=== PATIENT | male | born 1980 | race Caucasian/White ===

== ENCOUNTER 2019-10-22 18:56 | Observation (INO) | payer SELFPAY ==
[2019-10-22] MEDS ORDERED: Morphine 4 MG/ML VIAL ONE (19:11)
[2019-10-22] MEDS ORDERED: Ondansetron PF 4 MG/2 ML Vial ONE (19:11)
[2019-10-22 19:31] LABS: #Lymphocytes 0.8 thou/uL (1.20-3.40); #Monocytes 0.6 thou/uL (0.11-0.59); #Neutrophils 15.6 thou/uL (1.40-6.50); %Basophils 0.1 % (0.0-1.0); %Eosinophils 0.1 % (0.0-10.0); %Lymphocytes 4.9 % (21.0-51.0); %Monocytes 3.5 % (0.0-10.0); %Neutrophils 91.3 % (42.0-75.0); Hemoglobin 16.5 g/dL (14.0-18.0); Mean Corpuscular HGB CONC 33.2 g/dL (32.0-36.0); Mean Corpuscular Hemoglobin 29.6 pg (27.0-31.0); Mean Corpuscular Volume 89.1 fL (78.0-98.0); Platelet Count 299 thou/uL (130-400); Red Blood Cell (RBC) Count 5.59 mill/uL (4.70-6.10); White Blood Cell (WBC) Count 17.1 thou/uL (4.8-10.8)
[2019-10-22 19:52] LABS: ALT (SGPT) 22 U/L (8-55); AST (SGOT) 21 U/L (5-34); Albumin 5.1 g/dL (3.5-5.0); Alkaline Phosphatase 89 U/L (40-110); Anion Gap 27 mmol/L (10-20); BUN (Urea Nitrogen) 16 mg/dL (8.9-20.6); Bilirubin, Total 0.6 mg/dL (0.2-1.2); Calc. Creatinine Clearance 0 mL/min (70-130); Calcium 10.1 mg/dL (7.8-10.44); Carbon Dioxide 14 mmol/L (22-29); Chloride 104 mmol/L (98-107); Estimated GFR-MDRD 85; Globulin 3.2 g/dL (2.4-3.5); Glucose 105 mg/dL (70-105); Potassium 4.7 mmol/L (3.5-5.1); Protein, Total 8.3 g/dL (6.0-8.3); Sodium 140 mmol/L (136-145)
[2019-10-22] MEDS ORDERED: cefTRIAXone\\ROCEPHIN 1 GM VIAL ONE (20:14)
--- NOTE | 2019-10-22 20:18 | ULT ---
SCROTAL ULTRASOUND: 10/22/19 COMPARISON: None. HISTORY: Right testicular pain for one day. TECHNIQUE: Multiplanar gates scale sonographic imaging of the contents of the scrotal sac obtained. The testicles are assessed with color flow and spectral analysis. FINDINGS: Left testicle measures 4.6 x 2.1 x 3.0 cm and right testicle measures 5.0 x 2.6 x 3.3 cm. Testicles d emonstrate normal blood flow without evidence for mass on either side. Epididymal head appears unrema rkable bilaterally. Trace bilateral hydrocele noted. IMPRESSION: No acute findings. POS: [facility]
[2019-10-22 20:29] LABS: Bacteria/HPF None Seen HPF (None Seen); Bilirubin Negative (Negative); Blood, Urine Negative (Negative); Clarity Clear (Clear); Glucose, Urine (Dipstick) Normal (Negative); Leukocyte Negative Leu/uL (Negative); Nitrite Negative (Negative); Protein, Urine (Dipstick) 30 mg/dL (Neg-Trace); RBC/HPF 0-3 HPF (0-3); Squamous Epithelial None Seen HPF (0-3); Urobilinogen Normal mg/dL (Less than 2); WBC/HPF 0-3 HPF (0-3)
[2019-10-22 20:38] LABS: Lactic Acid 3.8 mmol/L (0.5-2.2)
--- NOTE | 2019-10-22 20:57 | CT ---
CT ABDOMEN AND PELVIS 10/22/19 COMPARISON: None. HISTORY: Right sided testicular pain/right flank pain. TECHNIQUE: Axial CT imaging at 5 mm intervals from lung bases through pubic symphysis without contrast. Coronal and sagittal reformatted imaging obtained. FINDINGS: Lack of contrast limits assessment of the viscera, bowel, vascular structures and for lymphadenopathy . The visualized lung bases are unremarkable. No free intraperitoneal air. The liver, gallbladder, spleen, pancreas, adrenal glands, and kidneys demonstrate no acute findings. No nephrolithiasis or hydronephrosis is noted on either side. There is a punctate calcification along the course of the distal aspect of the right ureter measuring in the 2 mm range on axial image 63. T his could potentially represent a tiny stone within the distal right ureter in the proper clinical se tting. This does not result in hydronephrosis or hydroureter; however. Limited assessment of the bowel without oral contrast media demonstrates no acute findings. Review of the osseous structures demonstrates no acute findings. IMPRESSION: No hydronephrosis or hydroureter. Punctate calcification along the course of the distal right ureter may represent a tiny stone within the distal right ureter without associated hydronephrosis or hydrou reter. Clinical correlation is required. This is felt to most likely be on the basis of a phlebolith. POS: [facility]
[2019-10-22] MEDS ORDERED: Lorazepam 2 MG/ML VIAL ONE (20:58)
--- NOTE | 2019-10-22 21:11 | PDOC.FPRHP ---
- History of Present Illness Chief Complaint: R testicular pain History of Present Illness: 39yoM w/ no known past medical history who presents for sudden onset of R testicular pain this afternoon that radiates to his right flank. He states he was just laying down when it started. He describes the pain as sharp, stabbing, 5/10, with associated nausea. The medication they gave in the ED makes it better. The pain comes up about every 10 min. He denies recent trauma, sexual activity, history of STDs, history of kidney stones. ED Course: Rocephin, Morphine, 2L NS, Zofran - Allergies/Adverse Reactions Allergies Allergy/AdvReac Type Severity Reaction Status Date / Time No Known Allergies Allergy Verified 10/22/19 22:32 - Home Medications Medication Instructions Recorded Confirmed Type Acetaminophen [Tylenol] 650 mg PO Q4HR PRN 10/22/19 10/22/19 History - History PMHx: Denies PSHx: Eye surgery FHx: Dad: Heart problems Mom: Heart problems Social: Remote history of illegal drug use. Alcohol use 1x / week. 8-9 drinks at a time. - Review of Systems General: denies: fever/chills, weight/appetite/sleep changes, night sweats, fatigue Eyes: denies: eye pain, vision changes ENT: denies: nasal congestion, rhinorrhea Respiratory: denies: cough, congestion, shortness of breath Cardiovascular: denies: chest pain, palpitation, edema, paroxysmal nocturnal dyspnea, orthopnea Gastrointestinal: reports: nausea. denies: vomiting, diarrhea, constipation, abdominal pain Genitourinary: reports: other (Pain). denies: incontinence, dysuria, polyuria Skin: denies: rashes Musculoskeletal: denies: pain, tenderness Neurological: denies: numbness, syncope, seizure, weakness - Vital signs BP: 138/93, Pulse: 136, Resp: 16 (Non-Labored), Pain: 2, O2 sat: 100 on (Room Air). Weight 64kg - Physical Exam Constitutional: NAD, awake, alert and oriented, well developed HEENT: normocephalic and atraumatic, PERRLA, EOMI, grossly normal vision, grossly normal hearing -HEENT: Dry mucus membranes, poor dentition Neck: supple, trachea midline Heart: RRR, normal S1/S2, no murmurs/rubs/gallops Lungs: CTAB, no respiratory distress, good air movement Abdomen: soft, non-tender, bowel sounds present -Abdomen: EXAM: Testes palpated bilaterally without significant discomfort. No nodules noted. Mild erythema in the groin. No palpable lymphadenopathy. Musculoskeletal: normal structure, normal tone Neurological: no focal deficit, CN II-XII intact, normal sensation Skin: no rash/lesions, good turgor Heme/Lymphatic: no unusual bruising or bleeding, no purpura, no petechia FMR H&P: Results - Labs Result Diagrams: 10/22/19 19:19 10/23/19 00:27 Lab results: WBC 17.1 thou/uL (4.8-10.8) H 10/22/19 19:19 Hgb 16.5 g/dL (14.0-18.0) 10/22/19 19:19 Hct 49.8 % (42.0-52.0) 10/22/19 19:19 MCV 89.1 fL (78.0-98.0) 10/22/19 19:19 Plt Count 299 thou/uL (130-400) 10/22/19 19:19 Neutrophils % 91.3 % (42.0-75.0) H 10/22/19 19:19 Sodium 140 mmol/L (136-145) 10/22/19 19:19 Potassium 4.7 mmol/L (3.5-5.1) 10/22/19 19:19 Chloride 104 mmol/L (98-107) 10/22/19 19:19 Carbon Dioxide 14 mmol/L (22-29) L 10/22/19 19:19 BUN 16 mg/dL (8.9-20.6) 10/22/19 19:19 Creatinine 0.97 mg/dL (0.7-1.3) 10/22/19 19:19 Glucose 105 mg/dL (70-105) 10/22/19 19:19 Lactic Acid 3.8 mmol/L (0.5-2.2) H 10/22/19 20:07 Calcium 10.1 mg/dL (7.8-10.44) 10/22/19 19:19 Total Bilirubin 0.6 mg/dL (0.2-1.2) 10/22/19 19:19 AST 21 U/L (5-34) 10/22/19 19:19 ALT 22 U/L (8-55) 10/22/19 19:19 Alkaline Phosphatase 89 U/L (40-110) 10/22/19 19:19 Serum Total Protein 8.3 g/dL (6.0-8.3) 10/22/19 19:19 Albumin 5.1 g/dL (3.5-5.0) H 10/22/19 19:19 Urine Ketones 40 mg/dL (Negative) A 10/22/19 20:07 Urine Blood Negative (Negative) 10/22/19 20:07 Urine Nitrite Negative (Negative) 10/22/19 20:07 Ur Leukocyte Esterase Negative Cece/uL (Negative) 10/22/19 20:07 Urine RBC 0-3 HPF (0-3) 10/22/19 20:07 Urine WBC 0-3 HPF (0-3) 10/22/19 20:07 Ur Squamous Epith Cells None Seen HPF (0-3) 10/22/19 20:07 Urine Bacteria None Seen HPF (None Seen) 10/22/19 20:07 - EKG Interpretation EKG: Sinus tach - Radiology Interpretation CT scan - abdomen Status: report reviewed by me (Possible tiny ureteral stone.) Chest x-ray Status: report reviewed by me (Mild increased linear density in the perihilar regions and lung bases. NAF) Other Status: report reviewed by me (Testicular US: No acute process) FMR H&P: A/P - Problem List (1) Testicular pain Current Visit: Yes Status: Acute Code(s): N50.819 - TESTICULAR PAIN, UNSPECIFIED - Plan Testicular pain - US showed no evidence of torsion - CT abdomen showed possible, small ureteral stone - No hematuria or urinary symptoms - Pain improved with Morphine in the ED - Will give Tylenol and Motrin for pain, instructed to call if pain is not well controlled. Dehydration - s/p 2L NS in the ED. - Will bolus 1L LR and then run at 125ml/hr Anion gap metabolic acidosis - Possibly 2/2 alcoholic ketoacidosis vs lactic acidosis - B-hydroxybutyrate level pending - Lactic acid 3.8 - Repeat BMP @ 00:00 Alcohol use - Endorses drinking large amounts on weekends - Plasma alcohol level < 10 - ASE monitoring protocol on, please page with symptoms. Dispo: Stable, admit for observation Code: Full PCP: None FMR H&P: Upper Level - Plan Date/Time: 10/22/192107 PCP: PAIGE HPI: This is a 39 yo M being admitted for evaluation of R testicular/abdominal pain. He stated he was sitting down at 4pm this afternoon and had sudden onset of sharp R testicular pain. He denies trauma, he states he has not been sexually active in 5-7 years. He works in construction. He denies any fevers, chills, sweats, N/V/D. He states he drinks 7-9 drinks one night each weekend. He had been drinking earlier today. He denies every getting blackout drunk. PHYSICAL EXAMINATION: General: NAD, alert and oriented x3 HEENT: PERRLA, EOMI, normal sclera, oropharynx without erythema or exudate, dry oral mucosa, poor dentition, breath smells of alcohol Neck: Supple. Full ROM. Heart/Cardiovascular System: RRR, Cap refill < 3 seconds, no rub, no murmur Lungs/Respiratory System: CTA-B, no resp distress Abdomen/Gastro-Intestinal System: normal bowel sounds, nontender, tinea cruris, no cellulitus, no lymphadenopathy, no tenderness or testicular swelling, no inguinal hernia appreciated Extremities: Warm extremities. No cyanosis or edema Neuro: No gross deficits appreciated. CN 2-12 grossly intact Psychiatry: Awake, Alert and cooperative with exam Skin: no rashes, ulcers Musculoskeletal: Full ROM A/P: # Abdominal pain 2/2 suspected alcoholic ketoacidosis - Suspect patient is volume down, dry oral mucosa - Negative alcohol level, breath smells of alcohol - Fluids, thiamine, folate, ASE scores - B-hydroxy pending, will recheck BMP at midnight - CK, lipase WNL - CT stone protocol and Testilar US negative # SIRS 2/2 dehydration - No fever, WBC 17, tachycardia - Attributed to dehydration - s/p rocephin in ED, cultures taken - consider repeat CXR in AM Fluids: LR Code status:full PPx: scd Dispo: obs Addendum - Attending - Attending Attestation Date/Time: 10/23/19 [id number] I personally evaluated the patient and discussed the management with Dr. Sales on 10/22/19 I agree with the History, Examination, Assessment and Plan documented above with any addition or exceptions noted below- 39yoM w/ no known past medical history who presents for sudden onset of R testicular pain this afternoon that radiates to his right flank. He states he was just laying down when it started. He describes the pain as sharp, stabbing, 5/10, with associated nausea. The medication they gave in the ED makes it better. The pain comes up about every 10 min. He denies recent trauma, sexual activity, history of STDs, history of kidney stones. Denies fever, chills, cough or ill contacts. In ER patient found to be tachycardic, had an elevated WBC count, metabolic acidosis so diagnosis of SIRS given. PMH/PSH/Meds/SH reviewed and agree with resident's documentation. Afebrile P132 BP 165/78 Exam repeated by me and agree with resident's documentation. Labs: WBC=17.1, H/H=16.5/49.8, Vz=277, K=4.7, Fi=262, CO2=14, BUN/Cr=16/0.97, Sajr=892 , Ca=10.1, lactic acid=3.8, AST/ALT=21/22, Procal=0.65. EKG= sinus tachycardia. Testicular USG- notorsion; no masses; normal epididymis. CT stone protocol- no hydronephrosis or hydroureter. A/P: 1) SIRS - Admit to medical; continue IVF suspect pre-renal component. 2) Testicular pain- uncertain etiology- urine GC/ CT collected. 3) Lactic acidosis - continue IVF and repeat in AM. .
--- NOTE | 2019-10-22 21:25 | RAD ---
TWO VIEWS OF THE CHEST: 10/22/19 COMPARISON: None. HISTORY: Vomiting, pain. FINDINGS: There is no pneumothorax or pleural fluid. There is no lobar consolidation or alveolar edema. Mild increased linear density in the perihilar regions and lung bases noted which may be on the basis of mild infiltrate or could simply represent mild vascular prominence. Clinical correlation is requi red. If symptoms persist or worsen, follow-up imaging of the chest advised. IMPRESSION: Nonspecific mild increased linear density in the perihilar regions in both lung bases as detailed abo ve. POS: [facility]
[2019-10-22 21:36] LABS: CK (CPK) 70 U/L (30-200); Lipase 10 U/L (8-78)
[2019-10-22] MEDS ORDERED: Morphine 4 MG/ML VIAL SLOW IVP PRN (21:39)
[2019-10-22] MEDS ORDERED: Ondansetron PF 4 MG/2 ML Vial IVP PRN (21:39)
[2019-10-22] MEDS ORDERED: Acetaminophen 325 MG TAB PO PRN (21:39)
[2019-10-22] MEDS ORDERED: Ibuprofen 800 MG TAB PO PRN (21:44)
[2019-10-22] MEDS ORDERED: Lactated Ringer's 1,000 ML IV SCH (22:00)
[2019-10-22 22:26] VITALS: BMI 25.0
[2019-10-22 23:07] LABS: Amphetamine Detected (NotDetected); Barbiturates Screen Not Detected (NotDetected); Benzodiazepine Screen Not Detected (NotDetected); Cocaine Metabolite Screen Detected (NotDetected); Medtox Control Line Valid? VALID (VALID); Medtox Reader # READER 4; Methadone Not Detected (NotDetected); Methamphetamine Detected (NotDetected); Opiate Screen Detected (NotDetected); Oxycodone Screen Not Detected (NotDetected); Phencyclidine (PCP) Not Detected (NotDetected); THC/Cannabinoid Screen Not Detected (NotDetected); Tricyclic Screen Not Detected (NotDetected)
[2019-10-22] MEDS: Lactated Ringer's 1,000 ML IV SCH (23:42)
[2019-10-23 01:07] LABS: Anion Gap 14 mmol/L (10-20); BUN (Urea Nitrogen) 15 mg/dL (8.9-20.6); Calc. Creatinine Clearance 103 mL/min (70-130); Calcium 8.4 mg/dL (7.8-10.44); Carbon Dioxide 22 mmol/L (22-29); Chloride 105 mmol/L (98-107); Estimated GFR-MDRD Greater than 90; Glucose 150 mg/dL (70-105); Potassium 4.1 mmol/L (3.5-5.1); Sodium 137 mmol/L (136-145)
[2019-10-23 04:42] LABS: #Lymphocytes 1.8 thou/uL (1.20-3.40); #Monocytes 0.8 thou/uL (0.11-0.59); #Neutrophils 5.2 thou/uL (1.40-6.50); %Basophils 0.4 % (0.0-1.0); %Eosinophils 0.6 % (0.0-10.0); %Lymphocytes 22.6 % (21.0-51.0); %Monocytes 10.3 % (0.0-10.0); %Neutrophils 66.1 % (42.0-75.0); Hemoglobin 13.5 g/dL (14.0-18.0); Mean Corpuscular HGB CONC 33.1 g/dL (32.0-36.0); Mean Corpuscular Hemoglobin 29.7 pg (27.0-31.0); Mean Corpuscular Volume 89.8 fL (78.0-98.0); Mean Platelet Volume 7.8 fL (7.4-10.4); Platelet Count 229 thou/uL (130-400); RBC Distribution Width 11.9 % (11.5-14.5); Red Blood Cell (RBC) Count 4.55 mill/uL (4.70-6.10); White Blood Cell (WBC) Count 7.9 thou/uL (4.8-10.8)
[2019-10-23 06:05] LABS: Lactic Acid 0.7 mmol/L (0.5-2.2)
--- NOTE | 2019-10-23 06:26 | PDOC.FM ---
- Subjective Subjective: Pt is doing well. He denies any pain today. He denies drug use. He is ready to go home. - Objective Vital Signs & Weight: Vital Signs (12 hours) Temp Pulse Resp BP BP Pulse Ox 10/23/19 03:50 97.6 F 92 18 113/74 92 L 10/23/19 03:46 113/74 10/22/19 23:48 97.5 F L 118 H 18 106/54 L 96 10/22/19 23:37 106/54 L 10/22/19 22:15 98.6 F 124 H 18 120/71 97 Weight Weight 68.039 kg I&O: 10/21/19 10/22/19 10/23/19 06:59 06:59 06:59 Intake Total 2380 Output Total 575 Balance 1805 Result Diagrams: 10/23/19 04:21 10/23/19 00:27 EKG Reviewed by me: Yes (Tele: Sinus tach resolved, currently NSR) Phys Exam - Physical Examination Constitutional: NAD HEENT: PERRLA dry MMs Neck: no JVD, full ROM Respiratory: no wheezing, clear to auscultation bilateral Cardiovascular: RRR, no significant murmur Gastrointestinal: soft, no distention Musculoskeletal: no edema, pulses present Neurological: non-focal, moves all 4 limbs Psychiatric: normal affect, A&O x 3 Skin: no rash Dx/Plan (1) Nephrolithiasis Status: Acute (2) Lymphocytosis Code(s): D72.820 - LYMPHOCYTOSIS (SYMPTOMATIC) Status: Acute - Plan Plan: # Nephrolithiasis vs Phlebolith in the setting of testicular pain - US showed no evidence of torsion - CT abdomen showed possible, small ureteral stone vs phlebolith - No hematuria or urinary symptoms - No pain today # Dehydration - resolved - s/p 2L NS in the ED. - Will bolus 1L LR and then run at 125ml/hr # Anion gap metabolic acidosis - resolved - Likely 2/2 alcoholic ketoacidosis vs lactic acidosis - lactic acid WNL. - B-hydroxybutyrate level negative # Alcohol use - Endorses drinking large amounts on weekends - last drink was a week ago - Plasma alcohol level < 10 - ASE monitoring protocol on, please page with symptoms. # Drug Use - denies drugs Dispo: Stable, home today Code: Full PCP: None Addendum - Attending - Attending Attestation Date/Time: 10/23/19 3689 I personally evaluated the patient and discussed the management with Dr. Abad. I agree with the History, Examination, Assessment and Plan documented above with any addition or exceptions noted below. Sx resolved. AG metabolic acidosis resolved. D/C home.
[2019-10-23 07:29] VITALS: TEMP 96.8
[2019-10-23] MEDS ORDERED: Thiamine 100 MG TAB PO SCH (09:00)
[2019-10-23] MEDS ORDERED: Folic Acid 1 MG TAB PO SCH (09:00)
[2019-10-23] MEDS: Lactated Ringer's 1,000 ML IV SCH (09:14)
[2019-10-23 11:43] VITALS: BP 132/75
--- NOTE | 2019-10-24 11:52 | DIS ---
DATE OF ADMISSION: 10/22/2019 DATE OF DISCHARGE: 10/23/2019 RESIDENT: Semaj Abad DO ADMITTING ATTENDING: Anuradha Smith MD DISCHARGE ATTENDING: Deniz Valdez MD CONSULTS: None. PROCEDURES PERFORMED: 1. Testicular ultrasound on 10/22/2019, revealed no acute findings. 2. Abdomen pelvis CT on 10/22/2019, revealed no hydronephrosis or hydroureter. Punctate calcification along the course of the distal right ureter may represent a tiny stone within the distal right ureter without associated hydronephrosis or hydroureter. Clinical correlation is required. This is most likely to be on the basis of a phlebolith. 3. Chest x-ray on 10/22/2019, revealed nonspecific mild increased linear density in the perihilar regions in both lung bases as detailed. PRIMARY DIAGNOSES: 1. Phlebolith. 2. Dehydration. 3. Anion gap metabolic acidosis. 4. Alcohol use. 5. Drug use. DISCHARGE MEDICATIONS: Tylenol 650 mg p.o. q.4 hours p.r.n. HISTORY OF PRESENT ILLNESS/HOSPITAL COURSE: The patient is a 39-year-old male with no known past medical history, who presented for right testicular pain onset in the afternoon that radiated to his right flank. He states he was at rest when it did occur and it was a sharp stabbing pain. There was concern for potential testicular torsion, so a right testicular ultrasound was ordered. The ultrasound was within normal limits. CT scan of his abdomen and pelvis also revealed possible phlebolith versus nephrolithiasis, which could have caused this pain. He was subsequently hydrated and on discharge, his pain had alleviated. The patient's labs were fairly unremarkable. DISPOSITION: Stable. DISCHARGE INSTRUCTIONS: 1. Location: [facility]. 2. Diet: Regular. 3. Activity: Ad oscar. 4. Followup: Establish with a primary care provider. Job ID: [id number]
[2019-10-25 21:12] LABS: Chlam.trachomatis by PCR,Urine Not Detected (NotDetected)
== END 2019-10-23 12:15 | disposition home or self-care (01) ==
LOC: ERS 18:56 → 2NO 21:07
PROVIDERS: ADMIT Family Medicine; ATTEND Family Medicine
DX: I87.8 Other specified disorders of veins (principal); E87.2 Acidosis; E86.0 Dehydration; R65.10 Systemic inflammatory response syndrome (SIRS) of non-infectious origin without acute organ dysfunction
CPT/HCPCS: 36415; 71046; 74176; 76870; 80048; 80053; 80306; 80307; 81003; 81015; 82010; 82550; 83605; 83690; 83735; 84145; 84484; 85025; 87040; 87086; 87491; 87591; 93005; 93976; 96361; 96365; 96375; G0378; J0696; J2060; J2270; J2405

== ENCOUNTER 2021-01-02 12:12 | Emergency (ER) | payer SELFPAY ==
[~2021-01-02 12:12] MED LIST: Iopamidol-370 76% 500 ML 1 ML ONE
[2021-01-02 12:35] LABS: #Basophils 0.1 thou/uL (0.0-0.2); #Eosinphils 0.3 thou/uL (0.0-0.7); #Lymphocytes 1.3 thou/uL (1.20-3.40); #Monocytes 0.4 thou/uL (0.11-0.59); #Neutrophils 3.8 thou/uL (1.40-6.50); %Basophils 1.4 % (0.0-1.0); %Eosinophils 4.5 % (0.0-10.0); %Lymphocytes 22.3 % (21.0-51.0); %Monocytes 6.1 % (0.0-10.0); %Neutrophils 65.7 % (42.0-75.0); Hemoglobin 17.4 g/dL (14.0-18.0); Mean Corpuscular Hemoglobin 30.8 pg (27.0-31.0); Mean Corpuscular Volume 87.9 fL (78.0-98.0); Mean Platelet Volume 8.1 fL (7.4-10.4); Platelet Count 249 thou/uL (130-400); Red Blood Cell (RBC) Count 5.64 mill/uL (4.70-6.10); White Blood Cell (WBC) Count 5.8 thou/uL (4.8-10.8)
[2021-01-02 12:53] LABS: Anion Gap 16 mmol/L (10-20); BUN (Urea Nitrogen) 11 mg/dL (8.9-20.6); Calc. Creatinine Clearance 0 mL/min (70-130); Calcium 9.9 mg/dL (7.8-10.44); Carbon Dioxide 20 mmol/L (22-29); Chloride 103 mmol/L (98-107); Glucose 98 mg/dL (70-105); Potassium 4.3 mmol/L (3.5-5.1); Sodium 135 mmol/L (136-145)
[2021-01-02 13:32] LABS: ALT (SGPT) 32 U/L (8-55); AST (SGOT) 23 U/L (5-34); Albumin 4.6 g/dL (3.5-5.0); Alkaline Phosphatase 80 U/L (40-110); Bilirubin, Direct 0.3 mg/dL (0.1-0.3); Bilirubin, Total 0.8 mg/dL (0.2-1.2); Protein, Total 8.3 g/dL (6.0-8.3)
[2021-01-02 13:42] LABS: Bacteria/HPF None Seen HPF (None Seen); Bilirubin Negative (Negative); Blood, Urine Negative (Negative); Clarity Clear (Clear); Glucose, Urine (Dipstick) Normal (Negative); Ketone, Urine 20 mg/dL (Negative); Leukocyte 25 Leu/uL (Negative); Nitrite Negative (Negative); Protein, Urine (Dipstick) 30 mg/dL (Neg-Trace); RBC/HPF None Seen HPF (0-3); Specific Gravity, Urine 1.037 (1.002-1.036); Squamous Epithelial 0-3 HPF (0-3); pH, Urine 6.5 (5.0-9.0)
== END 2021-01-02 14:47 | disposition home or self-care (01) ==
LOC: ERS 12:12
DX: N28.89 Other specified disorders of kidney and ureter (principal); R91.1 Solitary pulmonary nodule; F17.220 Nicotine dependence, chewing tobacco, uncomplicated
CPT/HCPCS: 36415; 74177; 80048; 80076; 81003; 81015; 83690; 85025; 87086; 93005; Q9967

== ENCOUNTER 2021-04-22 11:41 | Inpatient (IN) | payer SELFPAY ==
[2021-04-22 13:15] LABS: #Eosinphils 0.5 thou/uL (0.0-0.7); #Lymphocytes 1.2 thou/uL (1.20-3.40); #Monocytes 0.4 thou/uL (0.11-0.59); #Neutrophils 2.8 thou/uL (1.40-6.50); %Basophils 0.7 % (0.0-1.0); %Eosinophils 9.8 % (0.0-10.0); %Monocytes 8.7 % (0.0-10.0); %Neutrophils 56.8 % (42.0-75.0); Hemoglobin 16.5 g/dL (14.0-18.0); Mean Corpuscular HGB CONC 31.3 g/dL (32.0-36.0); Mean Corpuscular Hemoglobin 28.4 pg (27.0-31.0); Mean Corpuscular Volume 90.8 fL (78.0-98.0); Mean Platelet Volume 9.1 fL (7.4-10.4); Platelet Count 218 thou/uL (130-400); RBC Distribution Width 12.1 % (11.5-14.5); Red Blood Cell (RBC) Count 5.79 mill/uL (4.70-6.10); White Blood Cell (WBC) Count 4.9 thou/uL (4.8-10.8)
[2021-04-22 13:16] LABS: Bilirubin Negative (Negative); Blood, Urine Negative (Negative); Clarity Clear (Clear); Glucose, Urine (Dipstick) 100 mg/dL (Negative); Ketone, Urine Negative (Negative); Leukocyte Negative Leu/uL (Negative); Nitrite Negative (Negative); Protein, Urine (Dipstick) Negative (Neg-Trace); Specific Gravity, Urine 1.014 (1.002-1.036); Urobilinogen Normal mg/dL (Less than 2); pH, Urine 5.5 (5.0-9.0)
[2021-04-22 13:28] LABS: ALT (SGPT) 25 U/L (8-55); AST (SGOT) 18 U/L (5-34); Alkaline Phosphatase 67 U/L (40-110); Anion Gap 12 mmol/L (10-20); BUN (Urea Nitrogen) 10 mg/dL (8.9-20.6); Bilirubin, Total 0.4 mg/dL (0.2-1.2); Calc. Creatinine Clearance 0 mL/min (70-130); Calcium 9.8 mg/dL (7.8-10.44); Carbon Dioxide 27 mmol/L (22-29); Chloride 102 mmol/L (98-107); Globulin 3.1 g/dL (2.4-3.5); Glucose 109 mg/dL (70-105); Potassium 4.3 mmol/L (3.5-5.1); Protein, Total 7.1 g/dL (6.0-8.3); Sodium 137 mmol/L (136-145)
[2021-04-22] MEDS ORDERED: Zolpidem Tartrate 5 MG TAB PO PRN (16:47)
[2021-04-22] MEDS ORDERED: diphenhydrAMINE 50 MG/ML VIAL IVP PRN (16:47)
[2021-04-22] MEDS ORDERED: Ondansetron PF 4 MG/2 ML Vial IVP PRN (16:47)
[2021-04-22] MEDS ORDERED: hydrALAZINE 20 MG/ML VIAL SLOW IVP PRN (16:47)
[2021-04-22 16:54] VITALS: BMI 22.8
[2021-04-22] MEDS ORDERED: FLU VACC QS2021-22(6MOS UP)/PF 60 MCG/0.5 ML SYRINGE IM ONE (17:15)
[2021-04-22] MEDS: Sodium Chloride 0.9% 1,000 ML IV SCH (18:14)
[2021-04-22] MEDS: Docusate 100 MG CAP PO SCH (20:36)
[2021-04-22] MEDS: Famotidine/PF 20 mg/2ml Vial SLOW IVP SCH (20:38)
[2021-04-22 20:40] LABS: SARS-CoV-2 NAA Rapid Test Not Detected (NotDetected)
[2021-04-23] MEDS: Sodium Chloride 0.9% 1,000 ML IV SCH ×3 (03:35→22:49)
[2021-04-23] MEDS: Famotidine/PF 20 mg/2ml Vial SLOW IVP SCH ×2 (08:21→20:48)
[2021-04-23] MEDS: Docusate 100 MG CAP PO SCH ×2 (08:21→20:42)
[2021-04-23] MEDS ORDERED: Midazolam HCl 2 mg/2 ml Vial ONE ×2 (10:33→14:05)
[2021-04-23] MEDS ORDERED: Fentanyl 100 MCG/2 ML VIAL ONE ×2 (10:33→15:36)
[2021-04-23] MEDS ORDERED: ceFAZolin 2 GM/DEX 5% 100 ML BAG ONE (13:11)
[2021-04-23] MEDS ORDERED: Bupivacaine 0.25% 10 ML VIAL ONE (13:32)
[2021-04-23] MEDS ORDERED: EPINEPHrine 1 MG/ML AMP ONE (13:32)
[2021-04-23] MEDS ORDERED: Fentanyl 250 MCG/5 ML VIAL ONE (13:37)
[2021-04-23] MEDS ORDERED: PHENYLEPHRINE-NS 100 MCG/ML 10 ML SYRINGE ONE (13:58)
[2021-04-23] MEDS ORDERED: Dexamethasone 20 MG/5 ML VIAL ONE (13:58)
[2021-04-23] MEDS ORDERED: Lidocaine 1% PF 5 ML VIAL ONE (13:58)
[2021-04-23] MEDS ORDERED: Rocuronium Bromide 10 MG/ML (10ML VIAL) ONE (13:58)
[2021-04-23] MEDS ORDERED: PROPOFOL 200 MG/20 ML VIAL ONE (13:58)
[2021-04-23] MEDS ORDERED: Bupivacaine HCl 0.5%/Epinephrine 1:200,000/PF 30 ml Vial ONE (13:58)
[2021-04-23] MEDS ORDERED: Ondansetron PF 4 MG/2 ML Vial ONE (13:58)
[2021-04-23] MEDS ORDERED: Promethazine HCl 25 MG/ML VIAL IVPB PRN (15:27)
[2021-04-23] MEDS ORDERED: HYDROmorphone 2 MG/ML VIAL SLOW IVP PRN (15:27)
[2021-04-23] MEDS ORDERED: Ondansetron HCl/PF 4 MG/2 ML Vial IVP PRN (15:27)
[2021-04-23] MEDS ORDERED: Meperidine HCl/PF 25 MG/ML VIAL SLOW IVP PRN (15:27)
[2021-04-23] MEDS ORDERED: Promethazine HCl 25 MG/ML VIAL IM PRN ×2 (15:27→15:28)
[2021-04-23] MEDS ORDERED: Zolpidem Tartrate 5 MG TAB PO PRN (15:28)
[2021-04-23] MEDS ORDERED: fentaNYL Citrate/PF 2,000 MCG in Sodium Chloride 0.9% 60 ML IV PRN (15:28)
[2021-04-23] MEDS ORDERED: diphenhydrAMINE 50 MG/ML VIAL IVP PRN (15:28)
[2021-04-23] MEDS ORDERED: Ondansetron PF 4 MG/2 ML Vial IVP PRN (15:28)
[2021-04-23] MEDS ORDERED: Naloxone HCl 0.4 mg/ml Vial IV PRN (15:28)
[2021-04-23] MEDS ORDERED: diphenhydrAMINE 50 MG/ML VIAL IM PRN (15:28)
[2021-04-23] MEDS ORDERED: diphenhydrAMINE 25 MG CAP PO PRN (15:28)
[2021-04-23] MEDS ORDERED: Communication Order-Pharmacy FS SCH (15:30)
[2021-04-24 06:35] LABS: Hemoglobin 15.8 g/dL (14.0-18.0); Mean Corpuscular HGB CONC 33.2 g/dL (32.0-36.0); Mean Corpuscular Hemoglobin 29.7 pg (27.0-31.0); Mean Corpuscular Volume 89.5 fL (78.0-98.0); Mean Platelet Volume 7.9 fL (7.4-10.4); Platelet Count 228 thou/uL (130-400); RBC Distribution Width 11.7 % (11.5-14.5); White Blood Cell (WBC) Count 8.6 thou/uL (4.8-10.8)
[2021-04-24 06:46] LABS: Anion Gap 13 mmol/L (10-20); BUN (Urea Nitrogen) 9 mg/dL (8.9-20.6); Calc. Creatinine Clearance 95 mL/min (70-130); Carbon Dioxide 21 mmol/L (22-29); Chloride 101 mmol/L (98-107); Glucose 102 mg/dL (70-105); Potassium 4.4 mmol/L (3.5-5.1); Sodium 131 mmol/L (136-145)
[2021-04-24 08:26] VITALS: BP 135/80; TEMP 99
[2021-04-24] MEDS: Docusate 100 MG CAP PO SCH (08:26)
[2021-04-24] MEDS: Famotidine/PF 20 mg/2ml Vial SLOW IVP SCH (08:28)
[2021-04-24] MEDS: Sodium Chloride 0.9% 1,000 ML IV SCH (08:34)
[2021-04-24 09:10] LABS: Band 9 % (5-11); Lymphocytes 12 % (21-51); MDiff Complete? YES; Monocytes 7 % (0-10); Neutrophil 70 % (42-75); Platelet Morphology Comment Appears Adequate; RBC Morphology Normal; Reactive Lymphocytes 2 % (0-10)
== END 2021-04-24 11:09 | disposition home or self-care (01) | DRG 658 ==
LOC: ERS 11:41 → T4-A 15:51 → INTOOBSV 15:51 → OBSVTOIN 16:47
PROVIDERS: ADMIT Urology; ATTEND Urology
PROC: 0TT10ZZ Resection of Left Kidney, Open Approach (ICD-10-PCS; principal; 2021-04-23)
DX: C64.2 Malignant neoplasm of left kidney, except renal pelvis (principal); Z20.822 Contact with and (suspected) exposure to COVID-19; F17.210 Nicotine dependence, cigarettes, uncomplicated
CPT/HCPCS: 36415; 80048; 80053; 81003; 85007; 85025; 85027; 86850; 86900; 86901; 87086; 88307; A4649; C1776; G0378; J0171; J2250; J3010; J7050; S0020; S0028; U0002

== ENCOUNTER 2022-06-30 11:41 | Observation (INO) | payer SELFPAY ==
[2022-06-30 12:03] LABS: #Basophils 0.1 thou/uL (0.0-0.2); #Eosinphils 0.5 thou/uL (0.0-0.7); #Lymphocytes 1.7 thou/uL (1.20-3.40); #Monocytes 0.7 thou/uL (0.11-0.59); %Basophils 0.5 % (0.0-1.0); %Eosinophils 3.5 % (0.0-10.0); %Lymphocytes 12.1 % (21.0-51.0); %Monocytes 5.1 % (0.0-10.0); %Neutrophils 78.8 % (42.0-75.0); Hemoglobin 17.6 g/dL (14.0-18.0); Mean Corpuscular HGB CONC 34.6 g/dL (32.0-36.0); Mean Corpuscular Hemoglobin 30.5 pg (27.0-31.0); Mean Corpuscular Volume 88.3 fl (78.0-98.0); Mean Platelet Volume 7.8 fL (7.4-10.4); Platelet Count 307 10x3/uL (130-400); Red Blood Cell (RBC) Count 5.76 mill/uL (4.70-6.10)
[2022-06-30 12:24] LABS: Anion Gap 18 mmol/L (10-20); BUN (Urea Nitrogen) 9 mg/dL (8.9-20.6); Calc. Creatinine Clearance 0 mL/min (70-130); Carbon Dioxide 18 mmol/L (22-29); Chloride 105 mmol/L (98-107); Estimated GFR 102; Potassium 4.5 mmol/L (3.5-5.1)
[2022-06-30 12:25] LABS: ALT (SGPT) 29 U/L (8-55); AST (SGOT) 29 U/L (5-34); Albumin 4.4 g/dL (3.5-5.0); Alkaline Phosphatase 64 U/L (40-110); Bilirubin, Total 0.5 mg/dL (0.2-1.2); Calcium 9.4 mg/dL (7.8-10.44); Globulin 2.8 g/dL (2.4-3.5); Glucose 65 mg/dL (70-105); Lipase 14 U/L (8-78); Protein, Total 7.2 g/dL (6.0-8.3)
[2022-06-30 12:37] LABS: Sodium 139 mmol/L (136-145)
[2022-06-30 13:26] LABS: INR-International Normal Ratio 0.9; Prothrombin Time 12.5 sec (12.0-14.7)
[2022-06-30 13:27] LABS: PTT 28.6 sec (22.9-36.1)
[2022-06-30 13:46] LABS: Bilirubin Negative (Negative); Blood, Urine Negative (Negative); Clarity Clear (Clear); Glucose, Urine (Dipstick) Normal (Negative); Ketone, Urine 20 mg/dL (Negative); Leukocyte Negative Leu/uL (Negative); Nitrite Negative (Negative); Protein, Urine (Dipstick) Negative (Neg-Trace); Specific Gravity, Urine 1.018 (1.002-1.036); Urobilinogen Normal mg/dL (Less than 2)
[2022-06-30] MEDS ORDERED: HYDROcodone/Acetaminophen 5/325 mg Tablet PO PRN (15:23)
[2022-06-30] MEDS ORDERED: Acetaminophen 325 MG TAB PO PRN (15:23)
[2022-06-30] MEDS ORDERED: Calcium Carbonate 500 MG ChewTAB PO PRN (15:23)
[2022-06-30] MEDS ORDERED: Senokot S 8.6-50 MG TAB PO PRN (15:23)
[2022-06-30] MEDS ORDERED: Piperacillin/Tazobactam 3.375 GM in Sodium Chloride 0.9% 100 ML IVPB SCH ×2 (15:30→15:45)
[2022-06-30 16:09] LABS: Lactic Acid 1.1 mmol/L (0.5-2.2)
[2022-06-30] MEDS: Sodium Chloride 0.9% 1,000 ML IV SCH ×2 (16:24→23:57)
[2022-06-30 16:35] VITALS: BMI 22.6
[2022-06-30] MEDS: Famotidine 20 MG TAB PO SCH (21:15)
[2022-06-30] MEDS: Piperacillin/Tazobactam 3.375 GM in Sodium Chloride 0.9% 100 ML IVPB SCH (21:15)
[2022-07-01] MEDS: Piperacillin/Tazobactam 3.375 GM in Sodium Chloride 0.9% 100 ML IVPB SCH (05:29)
[2022-07-01] MEDS: Sodium Chloride 0.9% 1,000 ML IV SCH (05:32)
[2022-07-01 06:37] LABS: #Eosinphils 0.3 thou/uL (0.0-0.7); #Lymphocytes 0.9 thou/uL (1.20-3.40); #Monocytes 0.5 thou/uL (0.11-0.59); #Neutrophils 5.3 thou/uL (1.40-6.50); %Basophils 0.4 % (0.0-1.0); %Eosinophils 4.2 % (0.0-10.0); %Lymphocytes 13.2 % (21.0-51.0); %Monocytes 7.4 % (0.0-10.0); %Neutrophils 74.9 % (42.0-75.0); Hemoglobin 14.1 g/dL (14.0-18.0); Mean Corpuscular HGB CONC 34.2 g/dL (32.0-36.0); Mean Corpuscular Hemoglobin 30.8 pg (27.0-31.0); Mean Platelet Volume 8.2 fL (7.4-10.4); Platelet Count 206 10x3/uL (130-400); RBC Distribution Width 11.9 % (11.5-14.5); Red Blood Cell (RBC) Count 4.57 mill/uL (4.70-6.10); White Blood Cell (WBC) Count 7.1 10x3/uL (4.8-10.8)
[2022-07-01 06:54] LABS: Anion Gap 11 mmol/L (10-20); BUN (Urea Nitrogen) 11 mg/dL (8.9-20.6); Calc. Creatinine Clearance 93 mL/min (70-130); Calcium 8.4 mg/dL (7.8-10.44); Carbon Dioxide 22 mmol/L (22-29); Chloride 108 mmol/L (98-107); Estimated GFR 106; Glucose 76 mg/dL (70-105); Potassium 4.5 mmol/L (3.5-5.1); Sodium 136 mmol/L (136-145)
[2022-07-01] MEDS ORDERED: Sodium Chloride 0.9% 1,000 ML IV SCH (08:06)
[2022-07-01] MEDS: Famotidine 20 MG TAB PO SCH (09:39)
[2022-07-01 12:07] VITALS: BP 113/68; TEMP 98.1
== END 2022-07-01 13:38 | disposition home or self-care (01) ==
LOC: ERS 11:41 → T4-B 15:03
PROVIDERS: ADMIT Internal Medicine; ATTEND Internal Medicine
DX: R10.32 Left lower quadrant pain (principal); E87.20 Acidosis, unspecified; R65.10 Systemic inflammatory response syndrome (SIRS) of non-infectious origin without acute organ dysfunction; E86.9 Volume depletion, unspecified; Z90.5 Acquired absence of kidney; Z20.822 Contact with and (suspected) exposure to COVID-19
CPT/HCPCS: 36415; 36416; 71045; 74177; 80048; 80053; 81003; 83605; 83690; 85025; 85610; 85730; 87040; 96365; 96366; 96376; G0378; J2543; J3490; J7050; Q9967; U0003; U0005